=== PATIENT | female | born 1975 | race Caucasian/White ===

== ENCOUNTER 2021-04-23 02:41 | Emergency (ER) | payer SELFPAY ==
[~2021-04-23] VITALS: Ht 160 cm; Wt 100.0 kg
[2021-04-23] MEDS ORDERED: IPRATRPIUM/ALBUTEROL 0.5/2.5MG 3 ML NEBU. NEB ONE (03:15)
[2021-04-23] MEDS ORDERED: DEXAMETHASONE 4 MG TABLET PO ONE (03:15)
--- NOTE | 2021-04-23 03:27 | RAD ---
EXAM: AP View of the chest DATE: 04/23/2021 3:05 AM INDICATION: Reason: cough, SOA, COVID PUI / Spl. Instructions: / History: COMPARISON: No Prior FINDINGS: The heart is not enlarged. Mediastinal and hilar contours are normal. Patchy airspace opacities are seen in the lung bases bilaterally. No pleural effusion or pneumothorax. IMPRESSION: 1. Patchy airspace opacities in the lung bases bilaterally suspicious for consolidative process such as pneumonia. Electronically signed by: Damir Barclay MD (04/23/2021 3:25 AM) KRISTA
[2021-04-23 03:30] VITALS: BP 139/68
[2021-04-23] MEDS ORDERED: AZIT250T PO ×2 (03:40→03:48)
[2021-04-23] MEDS ORDERED: ALBU2.5V8 IH ×2 (03:40→03:48)
[2021-04-23] MEDS ORDERED: PRED20TA PO ×2 (03:40→03:48)
--- NOTE | 2021-04-23 03:40 | PHYS DOC ---
Past Medical History Past Medical History: Asthma Additional Past Medical Histor: Cushings Past Surgical History: Other Additional Past Surgical Histo: Uterine ablation Smoking Status: Current Every Day Smoker Alcohol Use: None Drug Use: None General Adult EDM: Chief Complaint: SHORTNESS OF BREATH HPI: HPI: Patient is a 46 year old female presents with 3-day history of dyspnea and cough. Patient does report history of asthma. Denies fever or chills. Patient reports generalized malaise. Patient reports possible exposure to COVID-19. Patient denies COVID vaccination. Denies trauma. Review of Systems: Review of Systems: Constitutional: Denies fever or chills Eyes: Denies redness or eye pain HENT: Denies sore throat; reports nasal congestion Respiratory: Reports cough, wheezing, and shortness of breath Cardiovascular: Denies chest pain or palpitations GI: Denies abdominal pain, nausea, or vomiting : Denies dysuria or hematuria Musculoskeletal: Denies back pain or joint pain Integument: Denies rash or skin lesions Neurologic: Denies headache, focal weakness or sensory changes Complete systems were reviewed and found to be within normal limits, except as documented in this note. Heart Score: C/O Chest Pain: N/A Current Medications: Current Medications Medications (Trade) Dose Ordered Sig/Tony Start Time Stop Time Status Last Admin Dose Admin Albuterol/ Ipratropium (Duoneb) 3 ml 1X ONCE 04/23/21 03:15 04/23/21 03:16 DC 04/23/21 03:21 3 ML Dexamethasone (Decadron) 10 mg 1X ONCE 04/23/21 03:15 04/23/21 03:16 DC Allergies: Allergies: Allergies Coded Allergies Type Severity Reaction Last Updated Verified varenicline Allergy Unknown 04/23/21 Yes Physical Exam: PE: Constitutional: Well developed, well nourished, no acute distress, non-toxic appearance HENT: Normocephalic, atraumatic Eyes: Conjunctiva normal, no discharge Neck: Normal range of motion, supple Lungs & Thorax: No respiratory distress, equal chest rise and fall, diminished at bases Abdomen: Soft, no tenderness Skin: Warm, dry, no erythema, no rash Extremities: No tenderness, ROM intact, no edema Neurologic: Alert and oriented X 3, no focal deficits noted Psychologic: Affect normal, judgment normal Current Patient Data: Vital Signs: Vital Signs Date Time Temp Pulse Resp B/P (MAP) Pulse Ox O2 Delivery O2 Flow Rate FiO2 04/23/21 03:22 96 Room Air 04/23/21 03:10 98.1 91 22 142/80 (100) 98.1 EKG: EKG: [] Radiology/Procedures: Radiology/Procedures: PROCEDURE: CHEST AP ONLY EXAM: AP View of the chest DATE: 04/23/2021 3:05 AM INDICATION: Reason: cough, SOA, COVID PUI / Spl. Instructions: / History: COMPARISON: No Prior FINDINGS: The heart is not enlarged. Mediastinal and hilar contours are normal. Patchy airspace opacities are seen in the lung bases bilaterally. No pleural effusion or pneumothorax. IMPRESSION: 1. Patchy airspace opacities in the lung bases bilaterally suspicious for consolidative process such as pneumonia. Electronically signed by: Damir Barclay MD (04/23/2021 3:25 AM) JOSECOLE Course & Med Decision Making: Course & Med Decision Making Pertinent Labs and Imaging studies reviewed. (See chart for details) Patient presents with HPI and physical exam concerning for COVID-19 infection. Patient noted to have wheezing. DuoNeb provided. Empiric steroid initiated. Chest x-ray with concern for pneumonia. COVID-19 testing pending. Patient stable for discharge with outpatient follow-up with PCP. Discussed f indings and plan with patient, who acknowledges understanding and agreement. COVID-19 CRITERIA: The patient was evaluated during the global COVID-19 pandemic, and that diagnosis was suspected/considered upon their initial presentation. Their evaluation, treatment and testing was consistent with current guidelines for patients who present with complaints or symptoms that may be related to COVID-19. Dragon Disclaimer: Vilma Disclaimer: This electronic medical record was generated, in whole or in part, using a voice recognition dictation system. Departure Departure Impression: Primary Impression: Pneumonia Qualified Codes: J18.9 - Pneumonia, unspecified organism Additional Impression: Suspected 2019 novel coronavirus infection Disposition: HOME / SELF CARE / HOMELESS Condition: STABLE Referrals: UNKNOWN PCP NAME (PCP) Patient Instructions: Pneumonia, Adult, [id number] Additional Instructions: You have been tested for or diagnosed with COVID-19. It is an infection caused by a new type of coronavirus. COVID-19 will cause cold-like or mild flu symptoms in most. It can cause more severe symptoms like problems breathing in some. There is no treatment for COVID-19. The body will clear the infection over time. Self-care will help to ease discomfort. Steps to Take: Self-Care Rest as needed. Healthy habits may help you feel better. Steps include: Choose healthy foods including fruits and vegetables. Drink water throughout the day. Get plenty of sleep each night. If you smoke, try to quit. It may ease breathing. Avoid alcohol. Keep Others Healthy The virus can spread to others. Droplets are released every time you sneeze or cough. The droplets can get into the mouth, nose, or eyes of people near you and lead to infection. To lower the chances of spreading COVID-19 to others: Stay at home until your doctor has said it is safe to leave. If you tested positive this will mean staying isolated until both of the following are true: At least 7 days have passed since the start of illness. You are free of fever for at least 72 hours without the use of medicine. During this time: - Avoid public areas, events, or transportation. Do not return to work or school until your doctor has said it is safe to do so. - Call ahead if you need to go to a medical center. Let them know you may have COVID-19. It will help them guide you where to go. They may also ask you to wear a facemask when you come to the office. - If you call for emergency medical services, let them know you may have COVID- 19. While at home: - Try to avoid close contact with others. Stay about 6 feet away. - If possible, spend most of your time in a separate room from others. - Use a face mask if you will be in close contact with others such as sharing a room or vehicle. - Have someone wipe down common surfaces in the home. Use household lombardi developer every day on areas like doorknobs, counters, or sinks. - Cough or sneeze into a tissue. Throw the tissue away right after use. If a tissue is not available, cough or sneeze into your elbow. - Wash your hands often. Wash them after sneezing or coughing. Use soap and water and wash for at least 20 seconds. Alcohol based hand tower cleaner can be used if soap and water is not available. - Do not prepare food for others. Avoid sharing personal items like forks, spoons, or toothbrushes. - Avoid close contact with pets while you are sick. There is no evidence of the virus passing to pets. This is a safety step until more is known about this virus. Isolation can be frustrating. Social interaction can help. Keep in touch with friends and family through phone and tech options. You can still interact with others in your home, just keep a safe distance of about 6 feet. Follow-up: Your doctors office will check in with you to see if there are any changes in your health. You may be asked to keep track of symptoms to share with them. They will also let you know when you are clear to be in public again. Problems to Look Out For: Contact your doctor if your recovery is not going as you expect. Get emergency care if you have problems such as: - Trouble breathing - Nonstop chest pain or pressure - Changes in awareness, confusion, or problems waking - Lips or face have bluish color - Worsening of symptoms If you think you have an emergency, call for emergency medical services right away. As taken from [facility] Prednisone (PREDNISONE) 20 Mg Tablet 2 TAB PO DAILY, #8 TAB Start this prescription tomorrow, Sunday04/24/21 Prov: AURORA UNDERWOOD DO 04/23/21 Azithromycin (ZITHROMAX) 250 Mg Tablet 1 PKG PO UD, #6 TAB Take 2 tablets on day 1 and then 1 tablet each day for the next 4 days as directed Prov: AURORA UNDERWOOD DO 04/23/21 Albuterol Sulfate (PROAIR HFA INHALER) 8.5 Gm Hfa.aer.ad 2 PUFF IH PRN Q4-6HRS PRN for wheezing, #1 INHALER 0 Refills Prov: AURORA UNDERWOOD DO 04/23/21 COVID-19 Assessment: COVID-19 Patient Risks: Age 65 or older: No Sign of co-morbidity: No Exp to person + for COVID: No Exp to PUI: No Travel from affected area: No Lower respiratory symptoms: Yes Fever: No Other: Yes PPE Use: Full PPE with N95 mask or PAPR: Yes AURORA UNDERWOOD DO Apr 23, 2021 03:40
--- NOTE | 2021-04-25 07:30 | NUR ---
IP: No phone number listed for patient, unable to call with result of COVID19 test result.
--- NOTE | 2021-04-25 09:38 | NUR ---
IP: Patient called in to the hospital and was transferred to this financial underwriter. After verification of full name and , patient informed of negative COVID19 test result. Requested copy of result be emailed to her. Patient provided email address which was verified via readback.
== END 2021-04-23 03:59 | disposition home or self-care (01) ==
LOC: ER 02:41
DX: J18.9 Pneumonia, unspecified organism (principal); Z20.822 Contact with and (suspected) exposure to COVID-19; J45.909 Unspecified asthma, uncomplicated; F17.200 Nicotine dependence, unspecified, uncomplicated; Z88.1 Allergy status to other antibiotic agents
CPT/HCPCS: 71045; 94640; 99284; U0003